=== PATIENT | female | born 1985 | race Caucasian/White ===

== ENCOUNTER 2019-06-25 10:07 | Emergency (ER) | payer MEDICARE, MEDICAID ==
[2019-06-25] MEDS ORDERED: Acetaminophen 500 MG TAB ONE (11:21)
== END 2019-06-25 12:40 ==
LOC: NAV ERS 10:07
DX: J02.9 Acute pharyngitis, unspecified (principal); I12.0 Hypertensive chronic kidney disease with stage 5 chronic kidney disease or end stage renal disease; N18.6 End stage renal disease; E78.5 Hyperlipidemia, unspecified; F31.9 Bipolar disorder, unspecified; F43.10 Post-traumatic stress disorder, unspecified; Z99.2 Dependence on renal dialysis; Z79.899 Other long term (current) drug therapy
CPT/HCPCS: 87081; 87430; 93005